=== PATIENT | female | born 1965 | race Caucasian/White ===

== ENCOUNTER 2017-06-04 01:19 | Emergency (ER) | payer BC ==
[2017-06-04 02:06] LABS: BASOPHILS 0.3 % (0-2); EOSINOPHILS 3.1 % (0-7); HEMATOCRIT 36.6 % (36.0-48.0); HEMOGLOBIN 12.3 g/dL (12-16); IMMATURE GRANULOCYTES 0.2 % (0-5); LYMPHOCYTES 39.7 % (15-50); MCH 28.9 pg (26.0-34.0); MCHC 33.6 g/dL (31.0-37.0); MCV 86.1 fL (80.0-100.0); MEAN PLATELET VOLUME 9.6 fL (7.4-10.4); MONOCYTES 6.8 % (2-11); NEUTROPHILS 49.9 % (40-80); PLATELET COUNT 207 10x3/uL (130-400); RBC 4.25 10x6/uL (4.00-5.40); RDW 13.5 % (11.5-14.5); WBC 6.2 10x3/uL (4.8-10.8)
[2017-06-04 02:20] LABS: ALBUMIN 3.8 g/dL (3.4-5.0); ALKALINE PHOSPHATASE 34 U/L (46-116); ALT (SGPT) 16 U/L (10-68); CALC OSMOLALITY 276 mosm/kg (275-300); CALCIUM 8.3 mg/dL (8.5-10.1); CARBON DIOXIDE 26.2 mmol/L (21.0-32.0); CHLORIDE - SERUM 104 mmol/L (98-107); CREATININE - SERUM 0.8 mg/dL (0.6-1.3); GLUCOSE 102 mg/dL (74-106); POTASSIUM - SERUM 3.6 mmol/L (3.5-5.1); PROTEIN - SERUM 7.3 g/dL (6.4-8.2); SODIUM 139 mmol/L (136-145); UREA NITROGEN 11 mg/dL (7-18); eGFR NON AFRICAN AMERICAN 80 mL/min (90-120)
[2017-06-04 02:46] LABS: CKMB 1.1 U/L (0.0-3.6); CREATINE KINASE 68 UL (21-215); LIPASE 108 U/L (73-393); TROPONIN-I < 0.017 ng/mL (0.000-0.060)
== END 2017-06-04 03:50 | disposition home or self-care (01) ==
LOC: D.ER 01:19
PROVIDERS: Family Medicine
DX: R07.89 Other chest pain (principal); I45.10 Unspecified right bundle-branch block

== ENCOUNTER → 2018-07-09 14:13 | Outpatient (CLI) | payer BC | END | disposition home or self-care (01) | LOC: D.MRI 14:13 | PROVIDERS: ATTEND Orthopaedic Surgery | DX: M25.561 Pain in right knee (principal) ==

== ENCOUNTER 2018-12-08 22:20 | Emergency (ER) | payer BC ==
[~2018-12-08] VITALS: Ht 154.9 cm; Wt 54.5 kg
[2018-12-08 22:29] VITALS: BP 124/78; Ht 154.9 cm; Wt 54.5 kg
[2018-12-08] MEDS ORDERED: ZOLOFT25 MG PO (22:29)
[2018-12-08 23:33] LABS: APPEARANCE CLOUDY (CLEAR); BILIRUBIN NEGATIVE (NEGATIVE); COLOR PINK (YELLOW); GLUCOSE NEGATIVE (NEGATIVE); HCG URINE NEGATIVE (NEGATIVE); KETONE NEGATIVE (NEGATIVE); NITRITE POSITIVE (NEGATIVE); PROTEIN 3+ mg/dL (NEGATIVE); SPECIFIC GRAVITY 1.015 (1.005-1.020); UROBILINOGEN NORMAL (NORMAL)
[2018-12-08 23:34] LABS: BACTERIA MODERATE /hpf (NEGATIVE); EPITHELIAL CELLS 0-5 /hpf (0-5); RED CELLS - URINE 25-50 /hpf (0-5)
[2018-12-09] MEDS ORDERED: PHENAZOPYRIDIN100 MG PO (00:21)
[2018-12-09] MEDS ORDERED: CIPRO250 MG PO (00:21)
[2018-12-09] MEDS ORDERED: ZANAFLEX4 MG PO (00:28)
== END 2018-12-09 00:55 | disposition home or self-care (01) ==
LOC: D.ER 22:20
PROVIDERS: Emergency Medicine
DX: N39.0 Urinary tract infection, site not specified (principal); R33.9 Retention of urine, unspecified; F17.200 Nicotine dependence, unspecified, uncomplicated

== ENCOUNTER → 2019-03-04 11:30 | Outpatient (CLI) | payer BC ==
[2018-12-08 22:29] VITALS: BMI 22.7
[~2019-03-04 11:30] MED LIST: CIPRO250 MG PO; PHENAZOPYRIDIN100 MG PO; ZANAFLEX4 MG PO; ZOLOFT25 MG PO
== END | disposition home or self-care (01) ==
LOC: D.MAMMO 11:30
PROVIDERS: ATTEND Family Medicine
DX: N63.21 Unspecified lump in the left breast, upper outer quadrant (principal)

== ENCOUNTER → 2019-03-06 13:57 | Outpatient (CLI) | payer BC ==
[2018-12-08 22:29] VITALS: BMI 22.7
== END | disposition home or self-care (01) ==
LOC: D.US 13:57
PROVIDERS: ATTEND Family Medicine
DX: N63.20 Unspecified lump in the left breast, unspecified quadrant (principal)